=== PATIENT | female | born 1985 | race Caucasian/White ===

== ENCOUNTER 2017-04-16 16:57 | Inpatient (IN) | payer MEDICAID ==
[2017-04-16] MEDS ORDERED: Sodium Chloride 0.9% 10 ML Syringe FLUSH PRN ×2 (17:46→21:42)
--- NOTE | 2017-04-16 17:56 | EDM.PDOC ---
ED HPI GENERAL MEDICAL PROBLEM - General Chief Complaint: Neurological Problem Stated Complaint: SEIZURE Time Seen by Provider: 04/16/17 17:40 Source of Information: Reports: Patient History Limitations: Reports: No Limitations - History of Present Illness INITIAL COMMENTS - FREE TEXT/NARRATIVE: Lisandra is a 32 year old female with admitted ETOH abuse hx who presents to the ED today after having a possible seizure. Patient was out in the boat all day when she became tremulous, she was on the way here when her significant other said patient was shaking everywhere for one minute. Patient has drinks close to 3/4 liter daily. She has not had any ETOH for over 2 days. Patient denies hx of seizures or ETOH withdrawal symptoms in the past, she has never sought help for her drinking. Patient does admit to smoking marijuana on occasion, she smokes 1 to 1 1/2 packs of cigarettes per day. Onset: Today, Sudden - Related Data Allergies Allergy/AdvReac Type Severity Reaction Status Date / Time No Known Allergies Allergy Verified 04/16/17 17:20 Home Meds: Home Meds NK [No Known Home Meds] 04/16/17 [History] Past Medical History - Past Health History Medical/Surgical History: Denies Medical/Surgical History Psychiatric History: Reports: Addiction Social & Family History - Tobacco Use Smoking Status *Q: Current Every Day Smoker Years of Tobacco use: 15 Packs/Tins Daily: 1 - Alcohol Use Days Per Week of Alcohol Use: 7 Number of Drinks Per Day: 10 Total Drinks Per Week: 70 - Recreational Drug Use Recreational Drug Use: Yes Drug Use in Last 12 Months: Yes Recreational Drug Type: Reports: Marijuana/Hashish Recreational Drug Use Frequency: Weekly ED ROS GENERAL - Review of Systems Review Of Systems: See Below Constitutional: Reports: Weight Loss HEENT: Reports: No Symptoms Respiratory: Reports: No Symptoms Cardiovascular: Reports: No Symptoms Endocrine: Reports: No Symptoms GI/Abdominal: Reports: Decreased Appetite : Reports: No Symptoms Musculoskeletal: Reports: No Symptoms Skin: Reports: No Symptoms Neurological: Reports: Seizure, Tremors Psychiatric: Reports: Anxiety Hematologic/Lymphatic: Reports: No Symptoms Immunologic: Reports: No Symptoms - Physical Exam Exam: See Below Exam Limited By: No Limitations General Appearance: Alert, WD/WN, Anxious Eye Exam: Bilateral Eye: EOMI, PERRL Throat/Mouth: Normal Inspection, Normal Oropharynx Head Exam: Atraumatic Neck: Supple, Non-Tender, Full Range of Motion Respiratory/Chest: No Respiratory Distress, Lungs Clear, Normal Breath Sounds Cardiovascular: Normal Peripheral Pulses, No Murmur, Tachycardia GI/Abdominal: Normal Bowel Sounds, Soft, Non-Tender Neuro Exam (Abbreviated): Alert, Oriented, Other (tremors, tongue vasiculations ) Back Exam: Normal Inspection Extremities: Normal Inspection Psychiatric: Anxious Skin Exam: Warm, Dry EKG INTERPRETATION EKG Date: 04/16/17 Time: 19:40 Rhythm: NSR [place]: Normal P-Wave: Present QRS: Normal ST-T: Normal QT: Normal Comparison: NA - No Prior EKG Course - Vital Signs Text/Narrative:: 0-Lisandra is a 32 year old female with hx of ETOH abuse who presents to the ED today with c/o ETOH withdrawal symptoms. Please refer to HPI and focused exam. Patient may have had a one minute seizure on the way here which she denies any hx of. She is tremulous, tachycardic and mildly hypertensive on arrival here, clearly in ETOH withdrawal. PIV established, banana bag initiated, lab work pending, 10 mg Valium given, will monitor closely. 1849-Lab work concerning, anion gap of 35.4 with a Bicarb of 10. Creatinine mildly elevated at 1.3 with GFR of 47. Glucose elevated at 254. Magnesium is low at 1. Liver enzymes elevated. Lactic acid elevated at 3.9. Potassium low at 2.4. Patient is getting magnesium replaced with banana bag, IV potassium ordered. Patient feeling mildly better after initial dose of Valium. Patient will need admission for metabolic acidosis secondary to ETOH withdrawal as well as manage withdrawal symptoms. Patient agreeable to this. CIWA currently 12. EKG negative for any acute changes, CT of head negative for any acute intracranial pathology. Spoke with Dr. Hauser, hospitalist, regarding admission, he will be in to see patient. Patient updated on findings and plan of care and is agreeable. Blood pressure has improved at this time. Patient remains borderline tachycardic just above 100. Last Recorded V/S: Last Vital Signs Temp 37.1 C 04/16/17 17:32 Pulse 129 H 04/16/17 17:32 Resp 18 04/16/17 17:32 BP 138/94 H 04/16/17 17:32 Pulse Ox - Orders/Labs/Meds Orders: Active Orders 24 hr Category Date Time Status EKG Documentation Completion [RC] ASDIRECTED Care 04/16/17 19:11 Active Peripheral IV Care [RC] . DIRECTED Care 04/16/17 17:46 Active Head wo Cont [CT] Stat Exams 04/16/17 18:30 Taken INR,PT,PROTHROMBIN TIME [COAG] Stat Lab 04/16/17 19:34 Ordered PTT,PARTIAL THROMBOPLSTIN TIME [COAG] Stat Lab 04/16/17 19:34 Ordered URINALYSIS W/MICROSCOPIC [UA W/MICROSCOPIC] [URIN] Stat Lab 04/16/17 19:38 Ordered MVI, Adult with Vitamin K [Infuvite Adult] 10 ml Med 04/16/17 18:00 Active Thiamine [Vitamin B-1] 100 mg Folic Acid 1 mg Magnesium Sulfate [Magnesium Sulfate 50%] 3 gm Sodium Chloride 0.9% [Normal Saline] 1,000 ml IV ASDIRECTED Potassium Chloride [KCL 20 MEQ in Water 100 ML] 20 meq Med 04/16/17 18:26 Active Premix Bag 1 bag IV ONETIME Sodium Chloride 0.9% [Saline Flush] Med 04/16/17 17:46 Active 10 ml FLUSH ASDIRECTED PRN Peripheral IV Insertion Adult [OM.PC] Routine Oth 04/16/17 17:46 Ordered EKG 12 Lead [EK] Stat Ther 04/16/17 19:11 Ordered Medication Orders Multivitamins/Minerals 10 ml/Thiamine HCl 100 mg/ Folic Acid 1 mg/ Magnesium Sulfate 3 gm/ Sodium Chloride 1,017.2 mls @ 999 mls/hr IV ASDIRECTED JUDITH Last Admin: 04/16/17 18:51 Dose: 999 mls/hr Potassium Chloride 20 meq/ (Premix) 100 mls @ 50 mls/hr IV ONETIME ONE Stop: 04/16/17 20:25 Last Admin: 04/16/17 19:06 Dose: 50 mls/hr Sodium Chloride (Saline Flush) 10 ml FLUSH ASDIRECTED PRN PRN Reason: Keep Vein Open Last Admin: 04/16/17 17:52 Dose: 10 ml Labs: Laboratory Tests 04/16/17 04/16/17 04/16/17 Range/Units 17:46 17:47 17:48 WBC 11.0 (4.5-11.0) K/uL RBC 3.84 (3.30-5.50) M/uL Hgb 13.1 (12.0-15.0) g/dL Hct 39.1 (36.0-48.0) % MCV 102 H (80-98) fL MCH 34 H (27-31) pg MCHC 34 (32-36) % Plt Count 250 (150-400) K/uL Neut % (Auto) 54 (36-66) % Lymph % (Auto) 31 (24-44) % [place] % (Auto) 12 H (2-6) % Eos % (Auto) 2 (2-4) % Baso % (Auto) 3 H (0-1) % ABG Hemoglobin (12.0-16.0) g/dL ABG Oxyhemoglobin % ABG Carboxyhemoglobin (0.0-1.6) % ABG Methemoglobin % VBG pH (7.350-7.450) VBG pCO2 mm/Hg VBG pO2 mm/Hg VBG HCO3 mmol/L VBG Total CO2 mmol/L VBG O2 Saturation VBG O2 Content %vol VBG Base Excess mm/L O2 Delivery Device Sodium 136 L (140-148) mmol/L Potassium 2.4 L* (3.6-5.2) mmol/L Chloride 93 L (100-108) mmol/L Carbon Dioxide 10 L (21-32) mmol/L Anion Gap 35.4 H (5.0-14.0) mmol/L BUN 10 (7-18) mg/dL Creatinine 1.3 H (0.6-1.0) mg/dL Est Cr Clr Drug Dosing 55.90 mL/min Estimated GFR (MDRD) 47 L (>60) Glucose 254 H (74-106) mg/dL Lactic Acid (0.4-2.0) mmol/L Calcium 8.8 (8.5-10.1) mg/dL Magnesium 1.0 L (1.8-2.4) mg/dL Total Bilirubin 1.4 H (0.2-1.0) mg/dL AST 477 H (15-37) U/L ALT 167 H (12-78) U/L Alkaline Phosphatase 176 H (46-116) U/L Total Protein 8.1 (6.4-8.2) g/dL Albumin 4.6 (3.4-5.0) g/dL Globulin 3.5 (2.3-3.5) g/dL Albumin/Globulin Ratio 1.3 (1.2-2.2) 04/16/17 04/16/17 Range/Units 18:39 18:39 WBC (4.5-11.0) K/uL RBC (3.30-5.50) M/uL Hgb (12.0-15.0) g/dL Hct (36.0-48.0) % MCV (80-98) fL MCH (27-31) pg MCHC (32-36) % Plt Count (150-400) K/uL Neut % (Auto) (36-66) % Lymph % (Auto) (24-44) % [place] % (Auto) (2-6) % Eos % (Auto) (2-4) % Baso % (Auto) (0-1) % ABG Hemoglobin 12.7 (12.0-16.0) g/dL ABG Oxyhemoglobin 88.0 % ABG Carboxyhemoglobin 2.2 H (0.0-1.6) % ABG Methemoglobin 0.8 % VBG pH 7.477 H (7.350-7.450) VBG pCO2 29.9 mm/Hg VBG pO2 61.5 mm/Hg VBG HCO3 21.9 mmol/L VBG Total CO2 19.3 mmol/L VBG O2 Saturation 90.7 VBG O2 Content 15.8 %vol VBG Base Excess -0.4 mm/L O2 Delivery Device Room air Sodium (140-148) mmol/L Potassium (3.6-5.2) mmol/L Chloride (100-108) mmol/L Carbon Dioxide (21-32) mmol/L Anion Gap (5.0-14.0) mmol/L BUN (7-18) mg/dL Creatinine (0.6-1.0) mg/dL Est Cr Clr Drug Dosing mL/min Estimated GFR (MDRD) (>60) Glucose (74-106) mg/dL Lactic Acid 3.9 H (0.4-2.0) mmol/L Calcium (8.5-10.1) mg/dL Magnesium (1.8-2.4) mg/dL Total Bilirubin (0.2-1.0) mg/dL AST (15-37) U/L ALT (12-78) U/L Alkaline Phosphatase (46-116) U/L Total Protein (6.4-8.2) g/dL Albumin (3.4-5.0) g/dL Globulin (2.3-3.5) g/dL Albumin/Globulin Ratio (1.2-2.2) Meds: Medications Generic Name Dose Route Start Last Admin Trade Name Giancarloq PRN Reason Stop Dose Admin Multivitamins/Minerals 10 ml/ 1,017.2 mls @ 999 mls/hr 04/16/17 18:00 18:51 Thiamine HCl 100 mg/ Folic IV 999 mls/hr Acid 1 mg/ Magnesium Sulfate 3 ASDIRECTED JUDITH Administration gm/ Sodium Chloride Potassium Chloride 20 meq/ 100 mls @ 50 mls/hr 04/16/17 18:26 04/16/17 19:06 Premix IV 04/16/17 20:25 50 mls/hr ONETIME ONE Administration Sodium Chloride 10 ml 04/16/17 17:46 04/16/17 17:52 Saline Flush FLUSH 10 ml ASDIRECTED PRN Administration Keep Vein Open Discontinued Medications Generic Name Dose Route Start Last Admin Trade Name Giancarloq PRN Reason Stop Dose Admin Diazepam 10 mg 04/16/17 17:46 04/16/17 17:52 Valium IVPUSH 04/16/17 17:47 10 mg ONETIME ONE Administration Diazepam 10 mg 04/16/17 18:58 04/16/17 19:06 Valium IVPUSH 04/16/17 18:59 10 mg ONETIME ONE Administration Magnesium Sulfate 2 gm/ Premix 50 mls @ 12.5 mls/hr 04/16/17 18:11 IV 04/16/17 22:10 ONETIME ONE Potassium Chloride 20 meq/ 112 mls @ 50 mls/hr 04/16/17 18:15 Lidocaine HCl 2 ml/ Sodium IV Chloride Q2H JUDITH Lidocaine HCl 2 ml 04/16/17 18:52 04/16/17 19:05 Xylocaine-Mpf 1% INJECT 04/16/17 18:53 2 ml ONETIME ONE Administration Departure - Departure Time of Disposition: 20:15 Disposition: Admitted As Inpatient 66 Clinical Impression: Alcohol abuse Withdrawal symptoms, alcohol Qualifiers: Complication of substance-induced condition: uncomplicated Qualified Code(s): F10.230 - Alcohol dependence with withdrawal, uncomplicated Withdrawal seizures Qualifiers: Complication of substance-induced condition: uncomplicated Qualified Code(s): F19.230 - Other psychoactive substance dependence with withdrawal, uncomplicated - Discharge Information Forms: ED Department Discharge - My Orders Last 24 Hours: My Active Orders 04/16/17 17:46 Peripheral IV Care [RC] . DIRECTED Sodium Chloride 0.9% [Saline Flush] 10 ml FLUSH ASDIRECTED PRN Peripheral IV Insertion Adult [OM.PC] Routine 04/16/17 18:00 MVI, Adult with Vitamin K [Infuvite Adult] 10 ml Thiamine [Vitamin B-1] 100 mg Folic Acid 1 mg Magnesium Sulfate [Magnesium Sulfate 50%] 3 gm Sodium Chloride 0.9% [Normal Saline] 1,000 ml IV ASDIRECTED 04/16/17 18:26 Potassium Chloride [KCL 20 MEQ in Water 100 ML] 20 meq Premix Bag 1 bag IV ONETIME 04/16/17 18:30 Head wo Cont [CT] Stat 04/16/17 19:11 EKG Documentation Completion [RC] ASDIRECTED EKG 12 Lead [EK] Stat 04/16/17 19:34 INR,PT,PROTHROMBIN TIME [COAG] Stat PTT,PARTIAL THROMBOPLSTIN TIME [COAG] Stat 04/16/17 19:38 URINALYSIS W/MICROSCOPIC [UA W/MICROSCOPIC] [URIN] Stat - Assessment/Plan Last 24 Hours: My Active Orders 04/16/17 17:46 Peripheral IV Care [RC] . DIRECTED Sodium Chloride 0.9% [Saline Flush] 10 ml FLUSH ASDIRECTED PRN Peripheral IV Insertion Adult [OM.PC] Routine 04/16/17 18:00 MVI, Adult with Vitamin K [Infuvite Adult] 10 ml Thiamine [Vitamin B-1] 100 mg Folic Acid 1 mg Magnesium Sulfate [Magnesium Sulfate 50%] 3 gm Sodium Chloride 0.9% [Normal Saline] 1,000 ml IV ASDIRECTED 04/16/17 18:26 Potassium Chloride [KCL 20 MEQ in Water 100 ML] 20 meq Premix Bag 1 bag IV ONETIME 04/16/17 18:30 Head wo Cont [CT] Stat 04/16/17 19:11 EKG Documentation Completion [RC] ASDIRECTED EKG 12 Lead [EK] Stat 04/16/17 19:34 INR,PT,PROTHROMBIN TIME [COAG] Stat PTT,PARTIAL THROMBOPLSTIN TIME [COAG] Stat 04/16/17 19:38 URINALYSIS W/MICROSCOPIC [UA W/MICROSCOPIC] [URIN] Stat
[2017-04-16] MEDS ORDERED: MVI, Adult with Vitamin K 10 ML, Thiamine 100 MG, Folic Acid 1 MG, Magnesium Sulfate 3 ... IV SCH ×5 (18:00)
[2017-04-16] MEDS ORDERED: Magnesium Sulfate/Water 2 GM in Premix Bag 1 BAG IV ONE (18:11)
[2017-04-16] MEDS ORDERED: Potassium Chloride 20 MEQ, Lidocaine 1% 2 ML in Sodium Chloride 0.9% 100 ML IV SCH (18:15)
[2017-04-16] MEDS ORDERED: Potassium Chloride 20 MEQ in Premix Bag 1 BAG IV ONE (18:26)
--- NOTE | 2017-04-16 21:27 | PCM.HP ---
H&P History of Present Illness - General Date of Service: 04/16/17 Admit Problem/Dx: Source of Information: Patient, Family, Provider, RN Notes Reviewed History Limitations: Reports: No Limitations - History of Present Illness Initial Comments - Free Text/Narative: Ms. Jacob is a 32-year-old woman who is admitted through the emergency department for further management of alcohol withdrawal and alcohol withdrawal seizure. She reports that she drinks up to 12 ounces a day on a daily basis. She came to the [facility] to stay with some family and has not consumed alcohol over the past 2 days. She became very tremulous during the late afternoon and then developed a full blown tonic-clonic seizure which included tongue biting. On evaluation emergency room department CT scan of the head was unremarkable, she has significant metabolic abnormalities with severe hypokalemia and hypomagnesemia. She has quit drinking in the past and has gone through a relatively mild alcohol withdrawal. She is otherwise healthy and denies other significant symptoms. - Related Data Allergies/Adverse Reactions: Allergies Allergy/AdvReac Type Severity Reaction Status Date / Time No Known Allergies Allergy Verified 04/16/17 17:20 Home Medications: Home Meds NK [No Known Home Meds] 04/16/17 [History] Past Medical History - Past Health History Medical/Surgical History: Denies Medical/Surgical History Psychiatric History: Reports: Addiction Social & Family History - Tobacco Use Smoking Status *Q: Current Every Day Smoker Years of Tobacco use: 15 Packs/Tins Daily: 1 - Alcohol Use Days Per Week of Alcohol Use: 7 Number of Drinks Per Day: 10 Total Drinks Per Week: 70 - Recreational Drug Use Recreational Drug Use: Yes Drug Use in Last 12 Months: Yes Recreational Drug Type: Reports: Marijuana/Hashish Recreational Drug Use Frequency: Weekly H&P Review of Systems - Review of Systems: Review Of Systems: See Below General: Reports: Other (Tremulous) HEENT: Reports: No Symptoms Pulmonary: Reports: No Symptoms Cardiovascular: Reports: No Symptoms Gastrointestinal: Reports: No Symptoms Genitourinary: Reports: No Symptoms Musculoskeletal: Reports: No Symptoms Skin: Reports: No Symptoms Psychiatric: Reports: No Symptoms Neurological: Reports: Seizure Hematologic/Lymphatic: Reports: No Symptoms Immunologic: Reports: No Symptoms Exam - Exam Exam: See Below - Vital Signs Vital Signs: Last Vital Signs Temp 98.7 F 04/16/17 17:32 Pulse 101 H 04/16/17 19:33 Resp 18 04/16/17 17:32 BP 117/86 04/16/17 19:33 Pulse Ox 98 04/16/17 19:33 Weight: 135 lb - Exam General: Alert, Oriented, Cooperative, Mild Distress HEENT: Conjunctiva Clear, Hearing Intact, Mucosa Moist & [place], Posterior Pharynx Clear, Pupils Equal, Other (Bruising and lacerations to the tongue) Neck: Supple, Trachea Midline, +2 Carotid Pulse wo Bruit Lungs: Clear to Auscultation, Normal Respiratory Effort Cardiovascular: Regular Rate, Regular Rhythm, Normal S1, Normal S2. No: Systolic Murmur, Diastolic Murmur Abdomen: Normal Bowel Sounds, Soft Back Exam: Normal Inspection, Full Range of Motion, NT Extremities: 3, Normal Inspection, 10 Skin: Warm, Dry, Intact Neurological: Cranial Nerves Intact, Strength Equal Bilateral, Normal Speech, Normal Tone, Sensation Intact. No: Focal Deficit Neuro Extensive - Mental Status: Alert, Oriented x3, Memory Intact - Patient Data Lab Results Last 24 hrs: Laboratory Results - last 24 hr 04/16/17 04/16/17 04/16/17 Range/Units 17:46 17:47 17:48 WBC 11.0 (4.5-11.0) K/uL RBC 3.84 (3.30-5.50) M/uL Hgb 13.1 (12.0-15.0) g/dL Hct 39.1 (36.0-48.0) % MCV 102 H (80-98) fL MCH 34 H (27-31) pg MCHC 34 (32-36) % Plt Count 250 (150-400) K/uL Neut % (Auto) 54 (36-66) % Lymph % (Auto) 31 (24-44) % [place] % (Auto) 12 H (2-6) % Eos % (Auto) 2 (2-4) % Baso % (Auto) 3 H (0-1) % PT (9.5-12.0) sec INR (0.80-1.20) APTT (27.0-36.0) sec ABG Hemoglobin (12.0-16.0) g/dL ABG Oxyhemoglobin % ABG Carboxyhemoglobin (0.0-1.6) % ABG Methemoglobin % VBG pH (7.350-7.450) VBG pCO2 mm/Hg VBG pO2 mm/Hg VBG HCO3 mmol/L VBG Total CO2 mmol/L VBG O2 Saturation VBG O2 Content %vol VBG Base Excess mm/L O2 Delivery Device Sodium 136 L (140-148) mmol/L Potassium 2.4 L* (3.6-5.2) mmol/L Chloride 93 L (100-108) mmol/L Carbon Dioxide 10 L (21-32) mmol/L Anion Gap 35.4 H (5.0-14.0) mmol/L BUN 10 (7-18) mg/dL Creatinine 1.3 H (0.6-1.0) mg/dL Est Cr Clr Drug Dosing 55.90 mL/min Estimated GFR (MDRD) 47 L (>60) Glucose 254 H (74-106) mg/dL Lactic Acid (0.4-2.0) mmol/L Calcium 8.8 (8.5-10.1) mg/dL Magnesium 1.0 L (1.8-2.4) mg/dL Total Bilirubin 1.4 H (0.2-1.0) mg/dL AST 477 H (15-37) U/L ALT 167 H (12-78) U/L Alkaline Phosphatase 176 H (46-116) U/L Total Protein 8.1 (6.4-8.2) g/dL Albumin 4.6 (3.4-5.0) g/dL Globulin 3.5 (2.3-3.5) g/dL Albumin/Globulin Ratio 1.3 (1.2-2.2) Urine Color Urine Appearance Urine pH (4.5-8.0) Ur Specific [place] (1.008-1.030) Urine Protein (NEGATIVE) mg/dL Urine Glucose (UA) (NEGATIVE) mg/dL Urine Ketones (NEGATIVE) mg/dL Urine Occult Blood (NEGATIVE) Urine Nitrite (NEGATIVE) Urine Bilirubin (NEGATIVE) Urine Urobilinogen (NORMAL) mg/dL Ur Leukocyte Esterase (NEGATIVE) Urine RBC (0-5) Urine WBC (0-5) Ur Epithelial Cells Amorphous Sediment Urine Bacteria Urine Mucus 04/16/17 04/16/17 04/16/17 Range/Units 18:39 18:39 19:34 WBC (4.5-11.0) K/uL RBC (3.30-5.50) M/uL Hgb (12.0-15.0) g/dL Hct (36.0-48.0) % MCV (80-98) fL MCH (27-31) pg MCHC (32-36) % Plt Count (150-400) K/uL Neut % (Auto) (36-66) % Lymph % (Auto) (24-44) % [place] % (Auto) (2-6) % Eos % (Auto) (2-4) % Baso % (Auto) (0-1) % PT (9.5-12.0) sec INR (0.80-1.20) APTT 25.9 L (27.0-36.0) sec ABG Hemoglobin 12.7 (12.0-16.0) g/dL ABG Oxyhemoglobin 88.0 % ABG Carboxyhemoglobin 2.2 H (0.0-1.6) % ABG Methemoglobin 0.8 % VBG pH 7.477 H (7.350-7.450) VBG pCO2 29.9 mm/Hg VBG pO2 61.5 mm/Hg VBG HCO3 21.9 mmol/L VBG Total CO2 19.3 mmol/L VBG O2 Saturation 90.7 VBG O2 Content 15.8 %vol VBG Base Excess -0.4 mm/L O2 Delivery Device Room air Sodium (140-148) mmol/L Potassium (3.6-5.2) mmol/L Chloride (100-108) mmol/L Carbon Dioxide (21-32) mmol/L Anion Gap (5.0-14.0) mmol/L BUN (7-18) mg/dL Creatinine (0.6-1.0) mg/dL Est Cr Clr Drug Dosing mL/min Estimated GFR (MDRD) (>60) Glucose (74-106) mg/dL Lactic Acid 3.9 H (0.4-2.0) mmol/L Calcium (8.5-10.1) mg/dL Magnesium (1.8-2.4) mg/dL Total Bilirubin (0.2-1.0) mg/dL AST (15-37) U/L ALT (12-78) U/L Alkaline Phosphatase (46-116) U/L Total Protein (6.4-8.2) g/dL Albumin (3.4-5.0) g/dL Globulin (2.3-3.5) g/dL Albumin/Globulin Ratio (1.2-2.2) Urine Color Urine Appearance Urine pH (4.5-8.0) Ur Specific [place] (1.008-1.030) Urine Protein (NEGATIVE) mg/dL Urine Glucose (UA) (NEGATIVE) mg/dL Urine Ketones (NEGATIVE) mg/dL Urine Occult Blood (NEGATIVE) Urine Nitrite (NEGATIVE) Urine Bilirubin (NEGATIVE) Urine Urobilinogen (NORMAL) mg/dL Ur Leukocyte Esterase (NEGATIVE) Urine RBC (0-5) Urine WBC (0-5) Ur Epithelial Cells Amorphous Sediment Urine Bacteria Urine Mucus 04/16/17 04/16/17 Range/Units 19:34 19:38 WBC (4.5-11.0) K/uL RBC (3.30-5.50) M/uL Hgb (12.0-15.0) g/dL Hct (36.0-48.0) % MCV (80-98) fL MCH (27-31) pg MCHC (32-36) % Plt Count (150-400) K/uL Neut % (Auto) (36-66) % Lymph % (Auto) (24-44) % [place] % (Auto) (2-6) % Eos % (Auto) (2-4) % Baso % (Auto) (0-1) % PT 10.9 (9.5-12.0) sec INR 1.02 (0.80-1.20) APTT (27.0-36.0) sec ABG Hemoglobin (12.0-16.0) g/dL ABG Oxyhemoglobin % ABG Carboxyhemoglobin (0.0-1.6) % ABG Methemoglobin % VBG pH (7.350-7.450) VBG pCO2 mm/Hg VBG pO2 mm/Hg VBG HCO3 mmol/L VBG Total CO2 mmol/L VBG O2 Saturation VBG O2 Content %vol VBG Base Excess mm/L O2 Delivery Device Sodium (140-148) mmol/L Potassium (3.6-5.2) mmol/L Chloride (100-108) mmol/L Carbon Dioxide (21-32) mmol/L Anion Gap (5.0-14.0) mmol/L BUN (7-18) mg/dL Creatinine (0.6-1.0) mg/dL Est Cr Clr Drug Dosing mL/min Estimated GFR (MDRD) (>60) Glucose (74-106) mg/dL Lactic Acid (0.4-2.0) mmol/L Calcium (8.5-10.1) mg/dL Magnesium (1.8-2.4) mg/dL Total Bilirubin (0.2-1.0) mg/dL AST (15-37) U/L ALT (12-78) U/L Alkaline Phosphatase (46-116) U/L Total Protein (6.4-8.2) g/dL Albumin (3.4-5.0) g/dL Globulin (2.3-3.5) g/dL Albumin/Globulin Ratio (1.2-2.2) Urine Color Yellow Urine Appearance Clear Urine pH 6.0 (4.5-8.0) Ur Specific [place] 1.015 (1.008-1.030) Urine Protein Negative (NEGATIVE) mg/dL Urine Glucose (UA) 100 H (NEGATIVE) mg/dL Urine Ketones 50 H (NEGATIVE) mg/dL Urine Occult Blood Moderate (NEGATIVE) Urine Nitrite Negative (NEGATIVE) Urine Bilirubin Negative (NEGATIVE) Urine Urobilinogen Normal (NORMAL) mg/dL Ur Leukocyte Esterase Negative (NEGATIVE) Urine RBC 0-5 (0-5) Urine WBC 0-5 (0-5) Ur Epithelial Cells Few Amorphous Sediment Not seen Urine Bacteria Few Urine Mucus Not seen Result Diagrams: 04/16/17 17:46 04/16/17 17:47 *Q Meaningful Use (ADM) - VTE *Q VTE Criteria *Q: - VTE Risk Assess *Q Each Risk Factor Represents 1 Point: None Total Score 1 Point Risk Factors: 0 Each Risk Factor Represents 2 Points: None Total Score 2 Point Risk Factors: 0 Each Risk Factor Represents 3 Points: None Total Score 3 Point Risk Factors: 0 Each Risk Factor Represents 5 Points: None Total Score 5 Point Risk Factors: 0 Venous Thromboembolism Risk Factor Score *Q: 0 - Stroke *Q Stroke Criteria *Q: - AMI *Q AMI Criteria *Q: Problem List Initiated/Reviewed/Updated: Yes Orders Last 24hrs: Active Orders 24 hr Category Date Time Status Patient Status Manage Transfer [TRANSFER] Routine ADT 04/16/17 21:06 Ordered Cardiac Monitoring [RC] .As Directed Care 04/16/17 21:06 Ordered EKG Documentation Completion [RC] ASDIRECTED Care 04/16/17 19:11 Active Peripheral IV Care [RC] . DIRECTED Care 04/16/17 17:46 Active Head wo Cont [CT] Stat Exams 04/16/17 18:30 Taken HCG QUALITATIVE,SERUM [CHEM] Stat Lab 04/16/17 21:05 Ordered MVI, Adult with Vitamin K [Infuvite Adult] 10 ml Med 04/16/17 18:00 Active Thiamine [Vitamin B-1] 100 mg Folic Acid 1 mg Magnesium Sulfate [Magnesium Sulfate 50%] 3 gm Sodium Chloride 0.9% [Normal Saline] 1,000 ml IV ASDIRECTED Sodium Chloride 0.9% [Saline Flush] Med 04/16/17 17:46 Active 10 ml FLUSH ASDIRECTED PRN Peripheral IV Insertion Adult [OM.PC] Routine Oth 04/16/17 17:46 Ordered Resuscitation Status Routine Resus Stat 04/16/17 21:08 Ordered EKG 12 Lead [EK] Stat Ther 04/16/17 19:11 Ordered Medication Orders Multivitamins/Minerals 10 ml/Thiamine HCl 100 mg/ Folic Acid 1 mg/ Magnesium Sulfate 3 gm/ Sodium Chloride 1,017.2 mls @ 999 mls/hr IV ASDIRECTED JUDITH Last Admin: 04/16/17 18:51 Dose: 999 mls/hr Sodium Chloride (Saline Flush) 10 ml FLUSH ASDIRECTED PRN PRN Reason: Keep Vein Open Last Admin: 04/16/17 17:52 Dose: 10 ml Assessment/Plan Comment:: ASSESSMENT AND PLAN ALCOHOL WITHDRAWAL-history of long-standing daily alcohol use, today is been abstinent from alcohol for 2 days. Developed tremulousness and then experienced full-blown tonic-clonic seizure. -IV fluids for hydration -Banana bag given in the ED -Oral folic acid and thiamine -Protonix by mouth -Alcohol withdrawal protocol and regular CWA assessment -Gabapentin 400 mg by mouth every 8 hours 4 days, then 200 mg by mouth every 8 hours 4 days SEIZURE-secondary to alcohol withdrawal -Neuro checks every 4 hours -Seizure precautions -No anti-epileptic therapy indicated HYPOKALEMIA -IV and oral potassium replacement -Recheck potassium level in a.m. HYPOMAGNESEMIA -IV and oral magnesium replacement -Recheck magnesium level in a.m. MAINTENANCE ISSUES -DVT prophylaxis; not indicated -GI prophylaxis; Protonix as above -Castañeda catheter; not indicated -Nutrition; not indicated -Nicotine dependence; 14 mg nicotine patch CODE STATUS-full code ADMISSION STATUS-patient will be admitted to inpatient status, expect at least a 2 night hospital stay for evaluation and management of problems as outlined above. At the time of this admission I do not reasonably expected evaluation and management of this problem will require more than a 96 hour hospital stay. DISPOSITION-anticipate discharge to home after the hospital stay. PRIMARY CARE PROVIDER-patient is from the [facility] and receives her primary care there
[2017-04-16] MEDS ORDERED: Pantoprazole 40 MG Tab.CR PO SCH (21:42)
[2017-04-16] MEDS ORDERED: LORazepam 2 MG/ML MDV IV SCH (21:42)
[2017-04-16] MEDS ORDERED: Acetaminophen 325 MG Tab PO PRN (21:42)
[2017-04-16] MEDS ORDERED: LORazepam 1 MG Tab PO SCH (21:42)
[2017-04-16] MEDS ORDERED: Potassium Chloride 20 MEQ Tab.ER PO ONE (21:42)
[2017-04-16] MEDS ORDERED: Potassium Chloride 40 MEQ in Premix Bag 1 BAG IV ONE (21:42)
[2017-04-16] MEDS ORDERED: Ondansetron 4 MG/2 ML SDV IV PRN (21:42)
[2017-04-16] MEDS: Thiamine 100 MG Tab PO SCH (22:27)
[2017-04-16] MEDS: Folic Acid 1 MG Tab PO SCH (22:27)
[2017-04-16] MEDS: Gabapentin 400 MG Cap PO SCH (22:27)
[2017-04-16] MEDS: Magnesium Sulfate/Water 2 GM in Premix Bag 1 BAG IV SCH (22:28)
[2017-04-16] MEDS: Potassium Chloride 20 MEQ in Premix Bag 2 BAG IV SCH (22:28)
[2017-04-16] MEDS: Sodium Chloride 0.9% 1,000 ML IV SCH (22:32)
[2017-04-17] MEDS: Potassium Chloride 20 MEQ in Premix Bag 2 BAG IV SCH (00:36)
[2017-04-17] MEDS: Magnesium Sulfate/Water 2 GM in Premix Bag 1 BAG IV SCH (04:06)
[2017-04-17] MEDS: Gabapentin 400 MG Cap PO SCH (05:50)
[2017-04-17] MEDS: Sodium Chloride 0.9% 1,000 ML IV SCH (06:04)
[2017-04-17] MEDS: Thiamine 100 MG Tab PO SCH (08:55)
[2017-04-17] MEDS: Folic Acid 1 MG Tab PO SCH (08:55)
--- NOTE | 2017-04-17 10:18 | PCM.DCSUM1 ---
Discharge Summary - Hospital Course Brief History: 32-year-old female with history of alcohol dependence who presented after a seizure and was admitted for observation and management. - Discharge Data Discharge Date: 04/17/17 Discharge Disposition: Home, Self-Care 01 Condition: Good - Discharge Diagnosis/Problem(s) (1) Alcohol abuse SNOMED Code(s): 34975672 ICD Code: F10.10 - ALCOHOL ABUSE, UNCOMPLICATED Status: Acute Current Visit: Yes (2) Withdrawal seizures SNOMED Code(s): 83898583 ICD Code: F19.239 - OTH PSYCHOACTIVE SUBSTANCE DEPENDENCE WITH WITHDRAWAL, UNSP; R56.9 - UNSPECIFIED CONVULSIONS Status: Acute Current Visit: Yes Qualifiers: Complication of substance-induced condition: uncomplicated Qualified Code(s ): F19.230 - Other psychoactive substance dependence with withdrawal, uncomplicated - Patient Summary/Data Hospital Course: Lisandra presented to the emergency room after a tonic-clonic seizure. This was thought to be secondary to alcohol withdrawal since it occurred approximately 48 hours after her last drink. Workup in the emergency room also revealed hypokalemia and hypomagnesemia. She was admitted for further management and electrolyte replacement. Overnight she did not have any recurrence of her seizures. Her potassium level and magnesium levels have normalized. She has only a very mild tremor but no other obvious signs of alcohol withdrawal such as confusion, hallucinations or hypertension/tachycardia. She is interested in alcohol cessation at this time but would prefer to have her assessment on him and seek [place]. She feels that she has adequate resources to stay away from alcohol until her follow-up and rule 25 assessment. I believe she is safe for outpatient management at this time. I did recommend gabapentin tapered over the next 7 days to help ease her alcohol withdrawal symptoms and a prescription was sent to [facility]. She will follow-up when she returns home. - Patient Instructions Diet: Regular Diet as Tolerated Activity: As Tolerated Driving: Do Not Drive (for 48 hours) Showering/Bathing: May Shower Notify Provider of: Fever, Increased Pain, Nausea and/or Vomiting Other/Special Instructions: 1. You were in the hospital for observation after a seizure thought secondary to alcohol withdrawal syndrome. You have not had any recurrent seizures. Your magnesium and potassium levels have normalized. I do recommend that you take gabapentin 400 mg 3 times daily for 8 doses (Monday, Monday and Monday) and then 200 mg 3 times daily for 9 doses (, Monday and Monday). Your first dose will be due this afternoon. I also recommend a rule 25 assessment that can be set up through [facility]. 2. I would recommend that you not drive for the next 48 hours. 3. Please seek medical attention if you develop recurrence of the seizures, have persistent nausea with vomiting, start to hallucinate or have more severe withdrawal symptoms. - Discharge Plan Prescriptions/Med Rec: Gabapentin [Neurontin] 100 mg PO ASDIRECTED #44 cap Home Medications: Home Meds Gabapentin [Neurontin] 100 mg PO ASDIRECTED #44 cap 04/17/17 [Rx] Patient Handouts: Alcohol Withdrawal, Gabapentin capsules or tablets Referrals: PCP,None [Primary Care Provider] - (Follow-up with your primary care provider to set up a rule 25 assessment and discuss alcohol dependence) - Discharge Summary/Plan Comment DC Time >30 min.: No (25) - Patient Data Vitals - Most Recent: Last Vital Signs Temp 36.5 C 04/17/17 07:45 Pulse 75 04/17/17 07:45 Resp 18 04/17/17 07:45 BP 101/63 04/17/17 07:45 Pulse Ox 98 04/17/17 07:45 Weight - Most Recent: 61.235 kg I&O - Last 24 hours: Intake & Output 04/16/17 04/17/17 04/17/17 22:59 06:59 14:59 Intake Total 2040 Output Total 500 Balance 1540 Lab Results - Last 24 hrs: Laboratory Results - last 24 hr 04/17/17 Range/Units 06:01 Sodium 140 (140-148) mmol/L Potassium 3.7 (3.6-5.2) mmol/L Chloride 106 (100-108) mmol/L Carbon Dioxide 24 (21-32) mmol/L Anion Gap 9.6 (5.0-14.0) mmol/L BUN 3 L D (7-18) mg/dL Creatinine 0.6 D (0.6-1.0) mg/dL Est Cr Clr Drug Dosing 121.13 mL/min Estimated GFR (MDRD) > 60 (>60) Glucose 80 (74-106) mg/dL Calcium 7.6 L (8.5-10.1) mg/dL Magnesium 3.2 H D (1.8-2.4) mg/dL Med Orders - Current: Current Medications Acetaminophen (Tylenol) 650 mg PO Q4H PRN PRN Reason: Pain (Mild 1-3)/fever Last Admin: 04/17/17 08:54 Dose: 650 mg Folic Acid (Folic Acid) 1 mg PO DAILY [facility] Last Admin: 04/17/17 08:55 Dose: 1 mg Gabapentin (Neurontin) 400 mg PO Q8H [facility] Last Admin: 04/17/17 05:50 Dose: 400 mg Sodium Chloride (Normal Saline) 1,000 mls @ 125 mls/hr IV ASDIRECTED [facility] Last Admin: 04/17/17 06:04 Dose: 125 mls/hr Lorazepam (Ativan) 0 mg IV ASDIRECTED [facility] PRN Reason: Protocol Lorazepam (Ativan) 0 mg PO ASDIRECTED [facility] PRN Reason: Protocol Last Admin: 04/16/17 22:40 Dose: 1 mg Ondansetron HCl (Zofran) 4 mg IV Q4H PRN PRN Reason: Nausea/Vomiting Pantoprazole Sodium (Protonix) 40 mg PO DAILY@0730 [facility] Sodium Chloride (Saline Flush) 10 ml FLUSH ASDIRECTED PRN PRN Reason: Keep Vein Open Thiamine HCl (Vitamin B-1) 100 mg PO DAILY [facility] Last Admin: 04/17/17 08:55 Dose: 100 mg Discontinued Medications Diazepam (Valium) 10 mg IVPUSH ONETIME ONE Stop: 04/16/17 17:47 Last Admin: 04/16/17 17:52 Dose: 10 mg Diazepam (Valium) 10 mg IVPUSH ONETIME ONE Stop: 04/16/17 18:59 Last Admin: 04/16/17 19:06 Dose: 10 mg Multivitamins/Minerals 10 ml/Thiamine HCl 100 mg/ Folic Acid 1 mg/ Magnesium Sulfate 3 gm/ Sodium Chloride 1,017.2 mls @ 999 mls/hr IV ASDIRECTED [facility] Last Admin: 04/16/17 18:51 Dose: 999 mls/hr Magnesium Sulfate 2 gm/ Premix 50 mls @ 12.5 mls/hr IV ONETIME ONE Stop: 04/16/17 22:10 Potassium Chloride 20 meq/Lidocaine HCl 2 ml/ Sodium Chloride 112 mls @ 50 mls/ hr IV Q2H [facility] Potassium Chloride 20 meq/ (Premix) 100 mls @ 50 mls/hr IV ONETIME ONE Stop: 04/16/17 20:25 Last Admin: 04/16/17 19:06 Dose: 50 mls/hr Magnesium Sulfate 2 gm/ Premix 50 mls @ 25 mls/hr IV Q6H [facility] Stop: 04/17/17 11:41 Last Admin: 04/17/17 04:06 Dose: 25 mls/hr Potassium Chloride 40 meq/ (Premix) 100 mls @ 25 mls/hr IV ONETIME ONE Stop: 04/17/17 01:41 Potassium Chloride 20 meq/ (Premix) 100 mls @ 50 mls/hr IV Q2H [facility] Stop: 04/17/17 01:59 Last Admin: 04/17/17 00:36 Dose: 50 mls/hr Lidocaine HCl (Xylocaine-Mpf 1%) 2 ml INJECT ONETIME ONE Stop: 04/16/17 18:53 Last Admin: 04/16/17 19:05 Dose: 2 ml Lidocaine HCl (Xylocaine-Mpf 1%) 2 ml INJECT Q2H [facility] Stop: 04/17/17 02:15 Last Admin: 04/17/17 04:06 Dose: 2 ml Pantoprazole Sodium (Protonix) 40 mg PO DAILY [facility] Last Admin: 04/16/17 22:27 Dose: 40 mg Potassium Chloride (Klor-Con M20) 40 meq PO ONETIME ONE Stop: 04/16/17 21:43 Last Admin: 04/16/17 22:27 Dose: 40 meq Sodium Chloride (Saline Flush) 10 ml FLUSH ASDIRECTED PRN PRN Reason: Keep Vein Open Last Admin: 04/16/17 17:52 Dose: 10 ml *Q Meaningful Use (DIS) - VTE *Q VTE Criteria *Q: VTE Pharmacological Contraindications *Q: Not Candidate LT Anticoag - Stroke *Q Stroke Criteria *Q: - AMI *Q AMI Criteria *Q:
[2017-04-17 10:20] VITALS: BP 111/65
[2017-04-18] MEDS ORDERED: Pantoprazole 40 MG Tab.CR PO SCH (07:30)
== END 2017-04-17 11:47 | disposition home or self-care (01) | DRG 897 ==
LOC: EDBD 16:57 → JP.ED 16:57 → JP.ICU 21:06
PROVIDERS: ADMIT Hospitalist; ATTEND Internal Medicine
DX: F10.230 Alcohol dependence with withdrawal, uncomplicated (principal); E87.2 Acidosis; G40.89 Other seizures; F19.230 Other psychoactive substance dependence with withdrawal, uncomplicated; F17.210 Nicotine dependence, cigarettes, uncomplicated; E87.6 Hypokalemia; E83.42 Hypomagnesemia
CPT/HCPCS: 36415; 70450; 80048; 80053; 81001; 82803; 83605; 83735; 84703; 85025; 85610; 85730; 93005; 93010; 96365; 96366; 96375; 96376; 99223-AI; 99238; 99284; 99285-25; A9270-GY; J3360; J3411; J3475; J3480; J3490; J7040; J7050

== ENCOUNTER 2019-03-03 21:33 | Emergency (ER) | payer MEDICAID ==
[2019-03-03] MEDS ORDERED: LORazepam 2 MG/ML SDV IVPUSH ONE (21:43)
[2019-03-03] MEDS ORDERED: Sodium Chloride 0.9% 10 ML Syringe FLUSH PRN ×2 (22:02)
--- NOTE | 2019-03-03 22:11 | EDM.PDOCBH ---
ED HPI GENERAL MEDICAL PROBLEM - General Chief Complaint: Drug or Alcohol Abuse Stated Complaint: ALCOHOL WITHDRAWAL PRONE TO SEIZURES Time Seen by Provider: 03/03/19 22:00 Source of Information: Reports: Patient History Limitations: Reports: No Limitations - History of Present Illness INITIAL COMMENTS - FREE TEXT/NARRATIVE: 34-year-old female has a history of alcoholism. She has a history of alcohol withdrawal seizures. Her last drink of alcohol was at 10 AM this morning. She is going through withdrawal and feeling very shaky. She is fearful of having a seizure and is asking for admission to help prevent this. She has been admitted to our facility a few times in the past for this. She has no history of DTs. She admits to using recreational marijuana. denies pain Pain Score (Numeric/FACES): 0 - Related Data Allergies Allergy/AdvReac Type Severity Reaction Status Date / Time No Known Allergies Allergy Verified 03/03/19 21:45 Home Meds: Home Meds hydrOXYzine HCl [hydrOXYzine] 25 mg PO ASDIRECTED PRN 03/03/19 [History] Past Medical History - Past Health History Medical/Surgical History: Denies Medical/Surgical History HEENT History: Reports: Impaired Vision Musculoskeletal History: Reports: Fracture, Other (See Below) Other Musculoskeletal History: right fibula fx Psychiatric History: Reports: Addiction, Other (See Below) Other Psychiatric History: ETOH Endocrine/Metabolic History: Reports: Other (See Below) Other Endocrine/Metabolic History: Boarder line diabetic Social & Family History - Family History Family Medical History: Noncontributory - Tobacco Use Smoking Status *Q: Current Every Day Smoker Years of Tobacco use: 20 Packs/Tins Daily: 0.5 - Caffeine Use Caffeine Use: Reports: Tea - Recreational Drug Use Recreational Drug Use: Yes Drug Use in Last 12 Months: Yes Recreational Drug Type: Reports: Marijuana/Hashish Recreational Drug Use Frequency: Weekly ED ROS GENERAL - Review of Systems Review Of Systems: See Below Constitutional: Denies: Fever, Chills, Weakness HEENT: Reports: No Symptoms Respiratory: Reports: No Symptoms Cardiovascular: Reports: No Symptoms GI/Abdominal: Reports: Nausea. Denies: Abdominal Pain, Vomiting : Reports: No Symptoms Neurological: Reports: Other (Shakiness.) Psychiatric: Denies: Homicidal Ideation, Suicidal Ideation ED EXAM, BEHAVIORAL HEALTH - Physical Exam Exam: See Below Exam Limited By: No Limitations General Appearance: Alert, No Apparent Distress Throat/Mouth: Normal Inspection Respiratory/Chest: No Respiratory Distress, Lungs Clear, Normal Breath Sounds Cardiovascular: Normal Peripheral Pulses, Regular Rate, Rhythm GI/Abdominal: Normal Bowel Sounds, Soft, Non-Tender Neurological: Alert, Normal Mood/Affect, Normal Cognition, Oriented x 3 Psychiatric: Alert, Normal Affect COURSE, BEHAVIORAL HEALTH COMP - Course Vital Signs: Last Vital Signs Temp 36.2 C 03/03/19 21:58 Pulse 94 03/03/19 23:00 Resp 14 03/03/19 23:00 BP 110/75 03/03/19 23:00 Pulse Ox 95 03/03/19 23:00 Orders, Labs, Meds: Active Orders 24 hr Category Date Time Status Peripheral IV Care [RC] . DIRECTED Care 03/03/19 22:04 Active Sodium Chloride 0.9% [Saline Flush] Med 03/03/19 22:02 Active 10 ml FLUSH ASDIRECTED PRN Sodium Chloride 0.9% [Saline Flush] Med 03/03/19 22:02 Active 10 ml FLUSH ASDIRECTED PRN Peripheral IV Insertion Adult [OM.PC] Urgent Oth 03/03/19 22:02 Ordered Medication Orders Sodium Chloride (Saline Flush) 10 ml FLUSH ASDIRECTED PRN PRN Reason: Keep Vein Open Sodium Chloride (Saline Flush) 10 ml FLUSH ASDIRECTED PRN PRN Reason: Keep Vein Open Laboratory Tests 03/03/19 03/03/19 03/03/19 Range/Units 22:08 22:08 22:08 WBC 7.1 (4.5-11.0) K/uL RBC 4.34 (3.30-5.50) M/uL Hgb 14.2 (12.0-15.0) g/dL Hct 40.7 (36.0-48.0) % MCV 94 (80-98) fL MCH 33 H (27-31) pg MCHC 35 (32-36) % Plt Count 297 (150-400) K/uL Neut % (Auto) 56 (36-66) % Lymph % (Auto) 33 (24-44) % [place] % (Auto) 9 H (2-6) % Eos % (Auto) 2 (2-4) % Baso % (Auto) 1 (0-1) % Sodium 138 L (140-148) mmol/L Potassium 3.4 L (3.6-5.2) mmol/L Chloride 97 L (100-108) mmol/L Carbon Dioxide 26 (21-32) mmol/L Anion Gap 18.4 H (5.0-14.0) mmol/L BUN 11 D (7-18) mg/dL Creatinine 0.8 (0.6-1.0) mg/dL Est Cr Clr Drug Dosing 89.16 mL/min Estimated GFR (MDRD) > 60 (>60) Glucose 97 (74-106) mg/dL Calcium 10.1 D (8.5-10.1) mg/dL Total Bilirubin 0.6 D (0.2-1.0) mg/dL AST 67 H D (15-37) U/L ALT 43 (12-78) U/L Alkaline Phosphatase 87 (46-116) U/L Total Protein 8.4 H (6.4-8.2) g/dL Albumin 4.7 (3.4-5.0) g/dL Globulin 3.7 H (2.3-3.5) g/dL Albumin/Globulin Ratio 1.3 (1.2-2.2) Urine HCG, Qual Urine Opiates Screen (NEGATIVE) Ur Oxycodone Screen (NEGATIVE) Urine Methadone Screen (NEGATIVE) Ur Propoxyphene Screen (NEGATIVE) Ur Barbiturates Screen (NEGATIVE) Ur Tricyclics Screen (NEGATIVE) Ur Phencyclidine Scrn (NEGATIVE) Ur Amphetamine Screen (NEGATIVE) U Methamphetamines Scrn (NEGATIVE) Urine MDMA Screen (NEGATIVE) U Benzodiazepines Scrn (NEGATIVE) U Cocaine Metab Screen (NEGATIVE) U Marijuana (THC) Screen (NEGATIVE) Ethyl Alcohol 73 mg/dL 03/03/19 03/03/19 Range/Units 22:44 22:44 WBC (4.5-11.0) K/uL RBC (3.30-5.50) M/uL Hgb (12.0-15.0) g/dL Hct (36.0-48.0) % MCV (80-98) fL MCH (27-31) pg MCHC (32-36) % Plt Count (150-400) K/uL Neut % (Auto) (36-66) % Lymph % (Auto) (24-44) % [place] % (Auto) (2-6) % Eos % (Auto) (2-4) % Baso % (Auto) (0-1) % Sodium (140-148) mmol/L Potassium (3.6-5.2) mmol/L Chloride (100-108) mmol/L Carbon Dioxide (21-32) mmol/L Anion Gap (5.0-14.0) mmol/L BUN (7-18) mg/dL Creatinine (0.6-1.0) mg/dL Est Cr Clr Drug Dosing mL/min Estimated GFR (MDRD) (>60) Glucose (74-106) mg/dL Calcium (8.5-10.1) mg/dL Total Bilirubin (0.2-1.0) mg/dL AST (15-37) U/L ALT (12-78) U/L Alkaline Phosphatase (46-116) U/L Total Protein (6.4-8.2) g/dL Albumin (3.4-5.0) g/dL Globulin (2.3-3.5) g/dL Albumin/Globulin Ratio (1.2-2.2) Urine HCG, Qual Negative Urine Opiates Screen Negative (NEGATIVE) Ur Oxycodone Screen Negative (NEGATIVE) Urine Methadone Screen Negative (NEGATIVE) Ur Propoxyphene Screen Negative (NEGATIVE) Ur Barbiturates Screen Negative (NEGATIVE) Ur Tricyclics Screen Negative (NEGATIVE) Ur Phencyclidine Scrn Negative (NEGATIVE) Ur Amphetamine Screen Negative (NEGATIVE) U Methamphetamines Scrn Negative (NEGATIVE) Urine MDMA Screen Negative (NEGATIVE) U Benzodiazepines Scrn Negative (NEGATIVE) U Cocaine Metab Screen Negative (NEGATIVE) U Marijuana (THC) Screen Negative (NEGATIVE) Ethyl Alcohol mg/dL Medications Generic Name Dose Route Start Last Admin Trade Name Freq PRN Reason Stop Dose Admin Sodium Chloride 10 ml 03/03/19 22:02 Saline Flush FLUSH ASDIRECTED PRN Keep Vein Open Sodium Chloride 10 ml 03/03/19 22:02 Saline Flush FLUSH ASDIRECTED PRN Keep Vein Open Discontinued Medications Generic Name Dose Route Start Last Admin Trade Name Freq PRN Reason Stop Dose Admin Lorazepam 1 mg 03/03/19 21:43 03/03/19 21:58 Ativan IVPUSH 03/03/19 21:44 1 mg ONETIME ONE Administration Lorazepam 1 mg 03/03/19 23:28 03/03/19 23:32 Ativan PO 03/03/19 23:29 1 mg ONETIME ONE Administration Re-Assessment/Re-Exam: Shortly after arrival the patient was rather shaky and anxious and was given 1 mg of Ativan IV. She was later given another dose of 1 mg Ativan by mouth. She did well with this. Departure - Departure Time of Disposition: 00:20 Disposition: DC/Tfer to Other Condition: Fair Clinical Impression: Alcohol withdrawal Qualifiers: Complication of substance-induced condition: uncomplicated Qualified Code(s): F10.230 - Alcohol dependence with withdrawal, uncomplicated - Discharge Information *PRESCRIPTION DRUG MONITORING PROGRAM REVIEWED*: No *COPY OF PRESCRIPTION DRUG MONITORING REPORT IN PATIENT JOSSE: No Referrals: PCP,None [Primary Care Provider] - Forms: ED Department Discharge Care Plan Goals: We have no beds at our facility there were we are transferring to [facility] in [place]. Dr Gustafson is the accepting physician. Transfer will be made by ambulance. She will ultimately undergo treatment after detox. - Problem List & Annotations (1) Alcohol abuse SNOMED Code(s): 79045103 Code(s): F10.10 - ALCOHOL ABUSE, UNCOMPLICATED Status: Acute Current Visit: No (2) Withdrawal symptoms, alcohol SNOMED Code(s): 000947609 Code(s): F10.239 - ALCOHOL DEPENDENCE WITH WITHDRAWAL, UNSPECIFIED Status: Acute Current Visit: Yes Qualifiers: Complication of substance-induced condition: uncomplicated Qualified Code(s ): F10.230 - Alcohol dependence with withdrawal, uncomplicated - My Orders Last 24 Hours: My Active Orders 03/03/19 22:02 Sodium Chloride 0.9% [Saline Flush] 10 ml FLUSH ASDIRECTED PRN Sodium Chloride 0.9% [Saline Flush] 10 ml FLUSH ASDIRECTED PRN Peripheral IV Insertion Adult [OM.PC] Urgent 03/03/19 22:04 Peripheral IV Care [RC] . DIRECTED - Assessment/Plan Last 24 Hours: My Active Orders 03/03/19 22:02 Sodium Chloride 0.9% [Saline Flush] 10 ml FLUSH ASDIRECTED PRN Sodium Chloride 0.9% [Saline Flush] 10 ml FLUSH ASDIRECTED PRN Peripheral IV Insertion Adult [OM.PC] Urgent 03/03/19 22:04 Peripheral IV Care [RC] . DIRECTED
[2019-03-03] MEDS ORDERED: LORazepam 1 MG Tab PO ONE (23:28)
[2019-03-04 00:19] VITALS: BP 121/79
== END 2019-03-04 00:40 | disposition other institution (70) ==
LOC: JP.ED 21:33
DX: F10.230 Alcohol dependence with withdrawal, uncomplicated (principal); Y90.3 Blood alcohol level of 60-79 mg/100 ml; F17.210 Nicotine dependence, cigarettes, uncomplicated
CPT/HCPCS: 36415; 80053; 80305; 81025; 85025; 96374; 99284; A9270; G0480; J2060

== ENCOUNTER 2019-03-17 09:22 | Emergency (ER) | payer MEDICAID ==
[2019-03-17] MEDS ORDERED: LORazepam 2 MG/ML SDV IM ONE (09:31)
--- NOTE | 2019-03-17 09:36 | EDM.PDOCBH ---
ED HPI GENERAL MEDICAL PROBLEM - General Stated Complaint: WITHDRAWLS Time Seen by Provider: 03/17/19 09:32 Source of Information: Reports: Patient, Family, RN Notes Reviewed History Limitations: Reports: No Limitations - History of Present Illness INITIAL COMMENTS - FREE TEXT/NARRATIVE: 34-year-old female presents to the emergency department today with complaint of alcohol withdrawal. She states she last drank 24-48 hrs. ago she does have a history of alcohol withdrawal with seizures right now she is tremulous and feels she is going to have a seizure - Related Data Allergies Allergy/AdvReac Type Severity Reaction Status Date / Time No Known Allergies Allergy Verified 03/03/19 21:45 Home Meds: Home Meds hydrOXYzine HCl [hydrOXYzine] 25 mg PO ASDIRECTED PRN 03/03/19 [History] Past Medical History HEENT History: Reports: Impaired Vision Musculoskeletal History: Reports: Fracture, Other (See Below) Other Musculoskeletal History: right fibula fx Psychiatric History: Reports: Addiction, Other (See Below) Other Psychiatric History: ETOH Endocrine/Metabolic History: Reports: Other (See Below) Other Endocrine/Metabolic History: [place] line diabetic Social & Family History - Family History Family Medical History: Noncontributory - Caffeine Use Caffeine Use: Reports: Tea ED ROS GENERAL - Review of Systems Review Of Systems: See Below Respiratory: Reports: No Symptoms Cardiovascular: Reports: No Symptoms Neurological: Reports: Tremors ED EXAM, BEHAVIORAL HEALTH - Physical Exam Exam: See Below Exam Limited By: No Limitations General Appearance: Alert, Mild Distress Respiratory/Chest: No Respiratory Distress, Lungs Clear, Normal Breath Sounds, No Accessory Muscle Use, Chest Non-Tender Cardiovascular: Regular Rate, Rhythm, No Murmur GI/Abdominal: Soft, Non-Tender Neurological: Alert, Normal Mood/Affect, Tremor COURSE, BEHAVIORAL HEALTH COMP - Course Vital Signs: Last Vital Signs Temp 96.5 F 03/17/19 10:03 Pulse 83 03/17/19 10:03 Resp 18 03/17/19 10:03 BP 115/84 03/17/19 10:03 Pulse Ox 97 03/17/19 10:03 Orders, Labs, Meds: Laboratory Tests 03/17/19 03/17/19 03/17/19 Range/Units 09:47 09:47 09:47 WBC 7.0 (4.5-11.0) K/uL RBC 3.91 (3.30-5.50) M/uL Hgb 12.8 (12.0-15.0) g/dL Hct 36.9 (36.0-48.0) % MCV 94 (80-98) fL MCH 33 H (27-31) pg MCHC 35 (32-36) % Plt Count 261 (150-400) K/uL Neut % (Auto) 68 H (36-66) % Lymph % (Auto) 21 L (24-44) % [place] % (Auto) 8 H (2-6) % Eos % (Auto) 2 (2-4) % Baso % (Auto) 1 (0-1) % PT (9.5-12.0) sec INR (0.80-1.20) Sodium 138 L (140-148) mmol/L Potassium 3.4 L (3.6-5.2) mmol/L Chloride 97 L (100-108) mmol/L Carbon Dioxide 26 (21-32) mmol/L Anion Gap 18.4 H (5.0-14.0) mmol/L BUN 8 (7-18) mg/dL Creatinine 0.8 (0.6-1.0) mg/dL Est Cr Clr Drug Dosing 89.16 mL/min Estimated GFR (MDRD) > 60 (>60) Glucose 113 H (74-106) mg/dL Calcium 9.5 (8.5-10.1) mg/dL Total Bilirubin 0.8 (0.2-1.0) mg/dL AST 92 H (15-37) U/L ALT 67 (12-78) U/L Alkaline Phosphatase 79 (46-116) U/L Total Protein 7.5 (6.4-8.2) g/dL Albumin 4.2 (3.4-5.0) g/dL Globulin 3.3 (2.3-3.5) g/dL Albumin/Globulin Ratio 1.3 (1.2-2.2) Ethyl Alcohol < 3 mg/dL 03/17/19 Range/Units 09:47 WBC (4.5-11.0) K/uL RBC (3.30-5.50) M/uL Hgb (12.0-15.0) g/dL Hct (36.0-48.0) % MCV (80-98) fL MCH (27-31) pg MCHC (32-36) % Plt Count (150-400) K/uL Neut % (Auto) (36-66) % Lymph % (Auto) (24-44) % [place] % (Auto) (2-6) % Eos % (Auto) (2-4) % Baso % (Auto) (0-1) % PT 11.2 (9.5-12.0) sec INR 1.02 (0.80-1.20) Sodium (140-148) mmol/L Potassium (3.6-5.2) mmol/L Chloride (100-108) mmol/L Carbon Dioxide (21-32) mmol/L Anion Gap (5.0-14.0) mmol/L BUN (7-18) mg/dL Creatinine (0.6-1.0) mg/dL Est Cr Clr Drug Dosing mL/min Estimated GFR (MDRD) (>60) Glucose (74-106) mg/dL Calcium (8.5-10.1) mg/dL Total Bilirubin (0.2-1.0) mg/dL AST (15-37) U/L ALT (12-78) U/L Alkaline Phosphatase (46-116) U/L Total Protein (6.4-8.2) g/dL Albumin (3.4-5.0) g/dL Globulin (2.3-3.5) g/dL Albumin/Globulin Ratio (1.2-2.2) Ethyl Alcohol mg/dL Medications Discontinued Medications Generic Name Dose Route Start Last Admin Trade Name Freq PRN Reason Stop Dose Admin Lorazepam 1 mg 03/17/19 09:31 03/17/19 09:50 Ativan IM 03/17/19 09:32 2 mg ONETIME ONE Administration Departure - Departure Time of Disposition: 10:30 Disposition: Home, Self-Care 01 Condition: Fair Clinical Impression: Withdrawal symptoms, alcohol Qualifiers: Complication of substance-induced condition: uncomplicated Qualified Code(s): F10.230 - Alcohol dependence with withdrawal, uncomplicated - Discharge Information Referrals: PCP,None [Primary Care Provider] - Additional Instructions: Continue to use the Ativan as needed for withdrawal symptoms, please report [facility], call or return to the emergency department for worsening of symptoms - Assessment/Plan Plan: Assessment Acuity = acute Site and laterality = alcohol withdrawal Etiology = EtOH Manifestations = tremors Location of injury = Home Lab values = CBC unremarkable AST elevated 92 consistent elevated liver enzymes , alcohol level 0 INR is also within normal limits Plan She had good relief with Ativan IM 1,1 mg, she was recently discharged from the hospital yesterday in the [facility] treatment with Librium she felt this was not providing good relief for her she is willing to go to a detox facility in the area detox facility is not available for female bed until tomorrow. Significant other feels he will be able to manage her at home with oral and a Van therefore prescription written for Ativan 1 mg 4-6 hours when necessary total #20 with the plan that she will go to [place] detox[facility] facility tomorrow This note was dictated using [employer] voice recognition software please call with any questions on syntax or grammar.
[2019-03-17 10:04] VITALS: BP 115/84
== END 2019-03-17 10:52 | disposition home or self-care (01) ==
LOC: JP.ED 09:22
DX: F10.230 Alcohol dependence with withdrawal, uncomplicated (principal); Z79.899 Other long term (current) drug therapy
CPT/HCPCS: 36415; 80053; 85025; 85610; 96372; 99284; G0480; J2060